=== PATIENT | female | born 1965 | race African-American/Black ===

== ENCOUNTER 2021-01-06 21:43 | Emergency (ER) | payer OTHER ==
[~2021-01-06] VITALS: Ht 162.6 cm; Wt 90.7 kg
[2021-01-06] MEDS ORDERED: METOPROLOL SUCC50 MG PO (22:04)
[2021-01-06] MEDS ORDERED: METFORMIN HCL500 M3 PO (22:05)
[2021-01-06] MEDS ORDERED: NOVOLOG100 UNIT/M SUBQ (22:05)
[2021-01-06 22:34] LABS: ABSOLUTE BASOPHILS 0.2 thou/uL (0.0-0.2); ABSOLUTE EOSINOPHILS 0.2 thou/uL (0.0-0.7); ABSOLUTE LYMPHOCYTES 3.3 thou/uL (0.8-5.3); ABSOLUTE MONOCYTES 0.3 thou/uL (0.0-1.2); ABSOLUTE NEUTROPHILS 2.3 thou/uL (1.6-8.1); BASOPHILS 2.6 %; EOSINOPHILS 3.3 %; HEMATOCRIT 42.5 % (37.0-47.0); HEMOGLOBIN 14.4 gm/dL (12.0-15.0); LYMPHOCYTES 53.5 %; MCH 28.7 pg (26.0-34.0); MCHC 33.9 g/dL (28.0-37.0); MCV 84.7 fL (80.0-100.0); MONOCYTES 4.2 %; MPV 10.5 fl. (7.2-11.1); NUCLEATED RBCS 0 /100WBC; PLATELET COUNT* 242 thou/uL (150-400); POLYS 36.4 %; RBC 5.02 mil/uL (4.20-5.00); RDW-CV 14.3 % (10.5-14.5); WBC 6.2 thou/uL (4.0-11.0)
[2021-01-06 22:53] LABS: CALCIUM 9.4 mg/dL (8.5-10.1); CREATININE 0.8 mg/dL (0.6-1.3)
[2021-01-06 22:57] LABS: ALBUMIN 3.7 g/dL (3.4-5.0); MAGNESIUM 1.6 mg/dL (1.8-2.4); TOTAL BILIRUBIN 0.6 mg/dL (<0.1-1.0); TOTAL PROTEIN 7.5 g/dL (6.4-8.2)
[2021-01-06 23:50] VITALS: BP 142/79
--- NOTE | 2021-01-08 14:14 | EKG ---
[place] [address] ELECTROCARDIOGRAM REPORT Name: JERONIMO CHAU Room: [facility]#: [id number] Admission: 01/06/21 Attend Phys: Discharge: 01/06/21 Date of : 67 Date of Service: 01/06/212153 Report #: [id number] THIS REPORT FOR: //name// [facility] [place] ED Test Date: 2021-01-06 Test Time: 21:54:56 Pat Name: JERONIMO CHAU Department: Room: Gender: F [employer]: [place] : 1965 Requested By: Jennifer Jang Order Number: [id number] MD: Oh Centeno Measurements Intervals [place]ley Rate: 92 P: 54 SD: 148 QRS: -1 QRSD: 88 T: 30 QT: 361 QTc: 447 Interpretive Statements Sinus rhythm Delayed R wave progression Baseline wander in lead(s) V3,V4 No previous ECG available for comparison Electronically Signed On 01-08-2021 14:13:48 CDT by Oh Centeno [email or web address] <ELECTRONICALLY SIGNED> By: Oh Centeno MD, [facility] 01/08/21 1413 [id number] [id number] Oh Centeno MD, [facility] /EPI
== END 2021-01-06 23:50 | disposition home or self-care (01) ==
LOC: M.ERS 21:43
PROVIDERS: Emergency Medicine
DX: I47.1 Supraventricular tachycardia (principal); Z79.899 Other long term (current) drug therapy